=== PATIENT | female | born 1985 | race Caucasian/White ===

== ENCOUNTER 2017-07-21 11:33 | Emergency (ER) | payer MEDICAID, OTHER ==
[2017-07-21] MEDS ORDERED: Ibuprofen 600 MG Tab PO ONE (12:06)
[2017-07-21] MEDS ORDERED: Ondansetron 4 MG Tab.DIS PO ONE (12:06)
--- NOTE | 2017-07-21 12:23 | EDM.PDOC ---
ED HPI GENERAL MEDICAL PROBLEM - General Chief Complaint: Respiratory Problem Stated Complaint: SORE THROAT/BODY ACHES Time Seen by Provider: 07/21/17 12:23 Source of Information: Reports: Patient History Limitations: Reports: No Limitations - History of Present Illness INITIAL COMMENTS - FREE TEXT/NARRATIVE: 31-year-old female presents for evaluation treatment of a sore throat and bodyaches. Reports she's been having symptoms for the last 2 days. Current symptoms include body aches, cough, sore throat, chills, migraines, abdominal discomfort, nausea, vomiting diarrhea. She denies any ear pain or fevers. She also reports that she has no appetite. Reports the cough is at times dry but other times she is coughing up a thick yellow and brown sputum. Of note patient's is a resident of the [facility]. Patient reports she did get her influenza vaccine this season. Patient reports that she has AIDS. Duration: Day(s): (2) Generalized Pain Score (Numeric/FACES): 8 - Related Data Allergies Allergy/AdvReac Type Severity Reaction Status Date / Time codeine Allergy Nausea and Verified 11/05/15 11:06 CDT Vomiting cyclobenzaprine HCl Allergy Seizure Verified 11/05/15 11:06 CDT [From Flexeril] ketorolac tromethamine Allergy Shortness Verified 11/05/15 11:06 CDT [From Toradol] of Breath promethazine HCl Allergy Other Verified 11/05/15 11:06 CDT [From Phenergan] tramadol Allergy Seizure Verified 07/21/17 11:48 Home Meds: Home Meds Efavirenz/Emtricitab/Tenofovir [Atripla Tablet] 1 each PO DAILY 07/20/15 [ History] Hydrocodone/Acetaminophen [Hydrocodon-Acetaminophn 10-325] 1 tab PO Q4H PRN 05/31 [History] traMADol HCl [Tramadol HCl] 50 mg PO ASDIRECTED PRN 11/05/15 [History] Divalproex Sodium [Depakote] 250 mg PO BID 11/08/15 [History] Azithromycin [IJP: Azithromycin] 250 mg PO DAILY #6 tab 07/21/17 [Rx] Past Medical History - Past Health History Medical/Surgical History: Denies Medical/Surgical History HEENT History: Reports: Head Cardiovascular History: Reports: None Respiratory History: Reports: None Other Respiratory History: 2013 Deceme Gastrointestinal History: Reports: None Genitourinary History: Reports: None [employer] History: Reports: None Musculoskeletal History: Reports: None Neurological History: Reports: Migraines, Seizure Psychiatric History: Reports: Anxiety Endocrine/Metabolic History: Reports: None Hematologic History: Reports: None Other Hematologic History: HIV Immunologic History: Reports: AIDS Oncologic (Cancer) History: Reports: Brain Dermatologic History: Reports: None - Infectious Disease History Infectious Disease History: Reports: Hepatitis C, HIV-Human Immunodeficiency Virus - Past Surgical History Head Surgeries/Procedures: Reports: None Cardiovascular Surgical History: Reports: None Female Surgical History: Reports: None Musculoskeletal Surgical History: Reports: None Social & Family History - Family History Family Medical History: Noncontributory Immunologic: Reports: HIV - Tobacco Use Smoking Status *Q: Former Smoker Years of Tobacco use: 2 Packs/Tins Daily: 1 Used Tobacco, but Quit: No Month Tobacco Last Used: jul 2015 Second Hand Smoke Exposure: No - Caffeine Use Caffeine Use: Reports: Coffee - Alcohol Use Days Per Week of Alcohol Use: 0 (Denies) - Recreational Drug Use Recreational Drug Use: Yes Drug Use in Last 12 Months: No Recreational Drug Type: Reports: Methamphetamine Recreational Drug Use Frequency: Daily - Living Situation & Occupation Living situation: Reports: , with Family Occupation: Employed ED ROS GENERAL - Review of Systems Review Of Systems: See Below Constitutional: Reports: Chills, Decreased Appetite, Other (reports bodyaches). Denies: Fever HEENT: Reports: Throat Pain. Denies: Ear Pain Respiratory: Reports: Cough, Sputum GI/Abdominal: Reports: Abdominal Pain, Diarrhea, Nausea, Vomiting Neurological: Reports: Headache ED EXAM, GENERAL - Physical Exam Exam: See Below Exam Limited By: No Limitations General Appearance: Alert, WD/WN, No Apparent Distress Eye Exam: Bilateral Eye: Normal Inspection Ears: Normal External Exam, Normal Canal, Hearing Grossly Normal, Normal TMs Nose: Normal Inspection Throat/Mouth: Normal Inspection, Normal Lips, Normal Voice, No Airway Compromise Neck: Normal Inspection Respiratory/Chest: No Respiratory Distress, Lungs Clear, Normal Breath Sounds Cardiovascular: Normal Peripheral Pulses, Regular Rate, Rhythm, No Murmur GI/Abdominal: Normal Bowel Sounds, Soft, Non-Tender Neurological: Alert, Oriented, Normal Cognition Psychiatric: Normal Affect, Normal Mood Skin Exam: Warm, Dry, Normal Color Course - Vital Signs Last Recorded V/S: Last Vital Signs Temp 36.2 C 07/21/17 13:42 Pulse 64 07/21/17 13:42 Resp 16 07/21/17 13:42 BP 108/80 07/21/17 13:42 Pulse Ox 100 07/21/17 13:42 - Orders/Labs/Meds Meds: Medications Discontinued Medications Generic Name Dose Route Start Last Admin Trade Name Cristy PRN Reason Stop Dose Admin Acetaminophen 975 mg 07/21/17 13:25 07/21/17 13:41 Tylenol PO 07/21/17 13:26 975 mg NOW ONE Administration Ibuprofen 600 mg 07/21/17 12:06 07/21/17 12:26 Motrin PO 07/21/17 12:07 600 mg ONETIME ONE Administration Ondansetron HCl 4 mg 07/21/17 12:06 07/21/17 12:26 Zofran Odt PO 07/21/17 12:07 4 mg ONETIME ONE Administration - Radiology Interpretation Free Text/Narrative:: chest xray shows no acute intrathoracic process - Re-Assessments/Exams Free Text/Narrative Re-Assessment/Exam: 07/21/17 13:16 patient requested something for pain. I will give her ibuprofen. She has taken this medication safely in the past. influenza's returned negative Rapid strep returned negative I reviewed the chest x-ray and lab results with the patient. I will started on azithromycin. Follow-up in one week. Parents discharge instructions as documented. Departure - Departure Time of Disposition: 13:24 Disposition: Home, Self-Care 01 Condition: Fair Clinical Impression: AIDS, Upper respiratory infection - Discharge Information Prescriptions: Azithromycin [IJP: Azithromycin] 250 mg PO DAILY #6 tab Instructions: Upper Respiratory Infection, Adult, [id number] Referrals: PCP,None [Primary Care Provider] - Forms: ED Department Discharge Additional Instructions: Azithromycin 2 tabs on day 1 followed by 1 tablet on days 2 through 5. [id number] Tylenol or Motrin as needed for headaches and bodyaches. Follow-up with family medicine in 1 week for recheck. make sure you are drinking plenty of fluids. please return to the ER if your symptoms change or worsen.
[2017-07-21] MEDS ORDERED: Acetaminophen 325 MG Tab PO ONE (13:25)
[2017-07-21 16:25] VITALS: BP 108/80
--- NOTE | 2017-07-22 15:41 | CR ---
Chest: Two views of the chest were obtained. Comparison: No prior chest x-ray. Heart size and mediastinum are normal. Lungs are clear. Bony structures are unremarkable for the patient's age. Impression: 1. Nothing acute is identified on two-view chest x-ray. Diagnostic code #1
== END 2017-07-21 13:41 | disposition home or self-care (01) ==
LOC: JD.ED 11:33
DX: J06.9 Acute upper respiratory infection, unspecified (principal); B20 Human immunodeficiency virus [HIV] disease; Z87.891 Personal history of nicotine dependence; Z79.899 Other long term (current) drug therapy; Z88.5 Allergy status to narcotic agent; Z88.8 Allergy status to other drugs, medicaments and biological substances
CPT/HCPCS: 71046; 87081; 87430; 87804; 99284; A9270; 99283

== ENCOUNTER 2017-10-02 15:41 | Emergency (ER) | payer OTHER ==
[2017-10-02 15:53] VITALS: BP 106/62
[2017-10-02] MEDS ORDERED: Iopamidol 755 MG/ML 50 ML Bottle IVPUSH ONE (16:26)
[2017-10-02] MEDS ORDERED: Sodium Chloride 0.9% 10 ML Syringe FLUSH PRN (16:26)
[2017-10-02] MEDS ORDERED: Iopamidol 755 Mg/ML 100 ML Bottle IVPUSH ONE (16:26)
[2017-10-02] MEDS ORDERED: Sodium Chloride 0.9% 100 ML IV SCH (16:30)
--- NOTE | 2017-10-02 17:01 | EDM.PDOC ---
ED HPI GENERAL MEDICAL PROBLEM - General Chief Complaint: Head Injury Stated Complaint: [facility] Time Seen by Provider: 10/02/17 16:02 Source of Information: Reports: Patient, Old Records History Limitations: Reports: No Limitations - History of Present Illness INITIAL COMMENTS - FREE TEXT/NARRATIVE: 31-year-old female arrives via [facility] for evaluation and treatment of injuries sustained in a fall. The patient is a resident at the [facility]. Reportedly she was talking with the nephrology social worker. She fell down approximately 6 steps. She arrives in a c-collar and on a backboard. Patient is currently complaining of headaches and neck pain. She is unsure exactly why she fell; states she had a syncopal episode. Denies any seizures. Currently complaining of headaches, neck pain, pain to the right foot, tailbone, right hip and left lower abdomen. Patient denies any vision changes, nausea or vomiting. She denies any back pain. Reportedly per EMS and [facility] staff she fell. This was witnessed. She was unconscious for approximately 10 minutes. She had labored breathing. They attempted to give her ventilations. States that her breathing stopped. The nurse at the [facility] started compressions and gave her 1 compression she then became more alerts and since she was picked up by EMS she has been in no acute distress. Reportedly per EMS they did put her on some oxygen as her oxygen sats were in the upper 80s to low 90s. Patient states that over the last week or so she has been experiencing a dry nonproductive cough. She also states that she feels like she cannot take a deep breath in. She has been feeling lightheaded and dizzy. She did feel lightheaded prior to the fall. patient has a history of HIV. She is currently on therapy for this and sees Dr. Clark. Onset: Today Location: Reports: Head, Neck, Abdomen, Pelvis, Lower Extremity, Right. Denies : Back Head Pain Score (Numeric/FACES): 10 Neck Pain Score (Numeric/FACES): 10 - Related Data Allergies Allergy/AdvReac Type Severity Reaction Status Date / Time cephalexin Allergy Other Verified 10/02/17 15:48 codeine Allergy Nausea and Verified 10/02/17 15:48 Vomiting cyclobenzaprine HCl Allergy Seizure Verified 10/02/17 15:48 [From Flexeril] ketorolac tromethamine Allergy Shortness Verified 10/02/17 15:48 [From Toradol] of Breath oxycodone [From OxyContin] Allergy Itching Verified 10/02/17 15:48 promethazine HCl Allergy Other Verified 10/02/17 15:48 [From Phenergan] tramadol Allergy Seizure Verified 10/02/17 15:48 Home Meds: Home Meds Abacavir/Dolutegravir/Lamivudi [Triumeq Tablet] 1 tab PO DAILY 10/02/17 [History ] Aspirin [Halfprin] 81 mg PO DAILY 10/02/17 [History] Docusate Sodium [Colace] 100 mg PO BEDTIME PRN 10/02/17 [History] Fluconazole [Diflucan] 100 mg PO DAILY 10/02/17 [History] Gabapentin [Neurontin] 300 mg PO BEDTIME 10/02/17 [History] Gabapentin [Neurontin] 600 mg PO DAILY 10/02/17 [History] Gabapentin [Neurontin] 600 mg PO DAILY 10/02/17 [History] Multivits,Th w-Fe,Other Min [Therems-M] 1 tab PO DAILY 10/02/17 [History] Naproxen [Naprosyn] 500 mg PO BID 10/02/17 [History] Promethazine [Phenergan] 50 mg PO Q8H PRN 10/02/17 [History] Sennosides [Aislinn-Priyanka] 2 tab PO BEDTIME 10/02/17 [History] Sulfamethoxazole/Trimethoprim [Bactrim Ds Tablet] 0.5 tab PO DAILY 10/02/17 [ History] Topiramate 150 mg PO BEDTIME 10/02/17 [History] Topiramate 200 mg PO DAILY 10/02/17 [History] rOPINIRole [Requip] 0.5 mg PO BEDTIME 10/02/17 [History] Past Medical History - Past Health History Medical/Surgical History: Denies Medical/Surgical History HEENT History: Reports: Head Cardiovascular History: Reports: None Respiratory History: Reports: None Other Respiratory History: 2013 Gastrointestinal History: Reports: None Genitourinary History: Reports: None FLAGMAN History: Reports: None Musculoskeletal History: Reports: None Neurological History: Reports: Migraines, Seizure Psychiatric History: Reports: Anxiety Endocrine/Metabolic History: Reports: None Hematologic History: Reports: None Other Hematologic History: HIV Immunologic History: Reports: AIDS Oncologic (Cancer) History: Reports: Brain Dermatologic History: Reports: None - Infectious Disease History Infectious Disease History: Reports: Hepatitis C, HIV-Human Immunodeficiency Virus - Past Surgical History Head Surgeries/Procedures: Reports: None Cardiovascular Surgical History: Reports: None Female Surgical History: Reports: None Musculoskeletal Surgical History: Reports: None Social & Family History - Family History Family Medical History: Noncontributory Immunologic: Reports: HIV - Tobacco Use Smoking Status *Q: Unknown Ever Smoked Years of Tobacco use: 2 Packs/Tins Daily: 1 Used Tobacco, but Quit: No Month/Year Tobacco Last Used: jul 2015 Second Hand Smoke Exposure: No - Caffeine Use Caffeine Use: Reports: Coffee - Alcohol Use Days Per Week of Alcohol Use: 0 (Denies) - Recreational Drug Use Recreational Drug Use: Yes Drug Use in Last 12 Months: No Recreational Drug Type: Reports: Methamphetamine Recreational Drug Use Frequency: Daily - Living Situation & Occupation Living situation: Reports: , with Family Occupation: Employed ED ROS GENERAL - Review of Systems Review Of Systems: See Below HEENT: Denies: Dental Pain, Nosebleed, Vision Change Respiratory: Reports: Shortness of Breath Cardiovascular: Reports: Chest Pain GI/Abdominal: Reports: Abdominal Pain (LLQ). Denies: Nausea, Vomiting Musculoskeletal: Reports: Neck Pain, Joint Pain (right ankle ). Denies: Back Pain Neurological: Reports: Dizziness, Headache, Numbness (chronic from HIV), Syncope , Tingling (chronic from HIV), Weakness (chronic from HIV) ED EXAM, HEAD INJURY - Physical Exam Exam: See Below Exam Limited By: No Limitations General Appearance: Alert, WD/WN, No Apparent Distress, Thin Head: Atraumatic, Normocephalic. No: Scalp Lacerations, Scalp Swelling, Scalp Abrasions, Scalp Ecchymosis, Scalp Hematoma, Scalp Tenderness, Active Bleeding, Martins's Sign, Facial Ecchymosis, Facial Lacerations, Facial Swelling, Sinus Tenderness, Facial Tenderness, Raccoon Eyes Nexus Criteria: No: Posterior, Midline Cervical Tenderness, Evidence of Intoxication, Altered Level of Consciousness, Focal Neurological Deficit, Painful Distraction Injuries Eyes: Bilateral Eye: EOMI, Normal Inspection, PERRL Ears: Normal External Exam. No: TM Blood Nose: Normal Inspection, No Blood Throat/Mouth: Normal Inspection, Normal Lips, Normal Voice, No Airway Compromise Neck: Other (Patient is in c-collar) Respiratory: No Respiratory Distress, Lungs Clear, Normal Breath Sounds, Chest Non-Tender Cardiovascular: Normal Peripheral Pulses, Regular Rate, Rhythm, No Murmur GI/Abdominal Exam: Normal Bowel Sounds, Soft, Tender (Left lower quadrant) Back Exam: Normal Inspection. 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 NO acute changes. Reviewed by myself and Dr. Morrell. Course - Vital Signs Last Recorded V/S: Last Vital Signs Temp 36.6 C 10/02/17 15:48 Pulse 56 L 10/02/17 15:48 Resp 13 10/02/17 15:48 BP 106/62 10/02/17 15:48 Pulse Ox 100 10/02/17 15:48 - Orders/Labs/Meds Labs: Laboratory Tests 10/02/17 10/02/17 10/02/17 Range/Units 16:32 16:32 16:32 WBC 2.53 L (3.98-10.04) K/mm3 RBC 3.45 L (3.98-5.22) M/mm3 Hgb 11.7 (11.2-15.7) gm/L Hct 34.2 (34.1-44.9) % MCV 99.1 H (79.4-94.8) fl MCH 33.9 H (25.6-32.2) pg MCHC 34.2 (32.2-35.5) g/dl RDW Std Deviation 43.5 (36.4-46.3) fL Plt Count 164 L (182-369) K/mm3 MPV 8.8 L (9.4-12.3) fl Neut % (Auto) 39.5 (34.0-71.1) % Lymph % (Auto) 46.6 (19.3-51.7) % Kings % (Auto) 9.1 (4.7-12.5) % Eos % (Auto) 4.0 (0.7-5.8) Baso % (Auto) 0.4 (0.1-1.2) % Neut # (Auto) 1.00 L (1.56-6.13) K/mm3 Lymph # (Auto) 1.18 (1.18-3.74) K/mm3 Kings # (Auto) 0.23 L (0.24-0.36) K/mm3 Eos # (Auto) 0.10 (0.04-0.36) K/mm3 Baso # (Auto) 0.01 (0.01-0.08) K/mm3 Manual Slide Review Abnormal smear Sodium 140 (136-145) mEq/L Potassium 3.6 (3.5-5.1) mEq/L Chloride 107 (98-107) mEq/L Carbon Dioxide 23 (21-32) mEq/L Anion Gap 13.6 (5-15) BUN 31 H (7-18) mg/dL Creatinine 1.2 H (0.55-1.02) mg/dL Est Cr Clr Drug Dosing 68.52 mL/min Estimated GFR (MDRD) 52 (>60) mL/min BUN/Creatinine Ratio 25.8 H (14-18) Glucose 75 (74-106) mg/dL Calcium 8.8 (8.5-10.1) mg/dL Total Bilirubin 0.4 (0.2-1.0) mg/dL AST 21 (15-37) U/L ALT 13 L (14-59) U/L Alkaline Phosphatase 32 L (46-116) U/L Troponin I < 0.017 (0.00-0.056) ng/mL Total Protein 7.7 (6.4-8.2) g/dl Albumin 4.4 (3.4-5.0) g/dl Globulin 3.3 gm/dL Albumin/Globulin Ratio 1.3 (1-2) Lipase 272 (73-393) U/L Urine Color (Yellow) Urine Appearance (Clear) Urine pH (5.0-8.0) Ur Specific [place] (1.005-1.030) Urine Protein (Negative) Urine Glucose (UA) (Negative) Urine Ketones (Negative) Urine Occult Blood (Negative) Urine Nitrite (Negative) Urine Bilirubin (Negative) Urine Urobilinogen (0.2-1.0) Ur Leukocyte Esterase (Negative) Urine RBC (0-5) /hpf Urine WBC (0-5) /hpf Ur Epithelial Cells (0-5) /hpf Urine Bacteria (FEW) /hpf Urine Mucus (FEW) /hpf Urine Opiates Screen (NEGATIVE) Ur Buprenorphine Scrn (NEGATIVE) Ur Oxycodone Screen (NEGATIVE) Urine Methadone Screen (NEGATIVE) Ur Propoxyphene Screen (NEGATIVE) Ur Barbiturates Screen (NEGATIVE) Ur Tricyclics Screen (NEGATIVE) Ur Phencyclidine Scrn (NEGATIVE) Ur Amphetamine Screen (NEGATIVE) U Methamphetamines Scrn (NEGATIVE) U Benzodiazepines Scrn (NEGATIVE) U Cocaine Metab Screen (NEGATIVE) U Marijuana (THC) Screen (NEGATIVE) Ethyl Alcohol 0.00 (0.00) gm% 10/02/17 10/02/17 Range/Units 17:10 17:10 WBC (3.98-10.04) K/mm3 RBC (3.98-5.22) M/mm3 Hgb (11.2-15.7) gm/L Hct (34.1-44.9) % MCV (79.4-94.8) fl MCH (25.6-32.2) pg MCHC (32.2-35.5) g/dl RDW Std Deviation (36.4-46.3) fL Plt Count (182-369) K/mm3 MPV (9.4-12.3) fl Neut % (Auto) (34.0-71.1) % Lymph % (Auto) (19.3-51.7) % Kings % (Auto) (4.7-12.5) % Eos % (Auto) (0.7-5.8) Baso % (Auto) (0.1-1.2) % Neut # (Auto) (1.56-6.13) K/mm3 Lymph # (Auto) (1.18-3.74) K/mm3 Kings # (Auto) (0.24-0.36) K/mm3 Eos # (Auto) (0.04-0.36) K/mm3 Baso # (Auto) (0.01-0.08) K/mm3 Manual Slide Review Sodium (136-145) mEq/L Potassium (3.5-5.1) mEq/L Chloride (98-107) mEq/L Carbon Dioxide (21-32) mEq/L Anion Gap (5-15) BUN (7-18) mg/dL Creatinine (0.55-1.02) mg/dL Est Cr Clr Drug Dosing mL/min Estimated GFR (MDRD) (>60) mL/min BUN/Creatinine Ratio (14-18) Glucose (74-106) mg/dL Calcium (8.5-10.1) mg/dL Total Bilirubin (0.2-1.0) mg/dL AST (15-37) U/L ALT (14-59) U/L Alkaline Phosphatase (46-116) U/L Troponin I (0.00-0.056) ng/mL Total Protein (6.4-8.2) g/dl Albumin (3.4-5.0) g/dl Globulin gm/dL Albumin/Globulin Ratio (1-2) Lipase (73-393) U/L Urine Color Yellow (Yellow) Urine Appearance Clear (Clear) Urine pH 7.0 (5.0-8.0) Ur Specific [place] 1.015 (1.005-1.030) Urine Protein Negative (Negative) Urine Glucose (UA) Negative (Negative) Urine Ketones Negative (Negative) Urine Occult Blood Negative (Negative) Urine Nitrite Negative (Negative) Urine Bilirubin Negative (Negative) Urine Urobilinogen 0.2 (0.2-1.0) Ur Leukocyte Esterase Negative (Negative) Urine RBC Not seen (0-5) /hpf Urine WBC 0-5 (0-5) /hpf Ur Epithelial Cells 0-5 (0-5) /hpf Urine Bacteria Few (FEW) /hpf Urine Mucus Not seen (FEW) /hpf Urine Opiates Screen Negative (NEGATIVE) Ur Buprenorphine Scrn Negative (NEGATIVE) Ur Oxycodone Screen Negative (NEGATIVE) Urine Methadone Screen Negative (NEGATIVE) Ur Propoxyphene Screen Negative (NEGATIVE) Ur Barbiturates Screen Negative (NEGATIVE) Ur Tricyclics Screen Negative (NEGATIVE) Ur Phencyclidine Scrn Negative (NEGATIVE) Ur Amphetamine Screen Negative (NEGATIVE) U Methamphetamines Scrn Negative (NEGATIVE) U Benzodiazepines Scrn Negative (NEGATIVE) U Cocaine Metab Screen Negative (NEGATIVE) U Marijuana (THC) Screen Negative (NEGATIVE) Ethyl Alcohol (0.00) gm% Meds: Medications Discontinued Medications Generic Name Dose Route Start Last Admin Trade Name Freq PRN Reason Stop Dose Admin Acetaminophen 975 mg 10/02/17 17:16 10/02/17 17:24 Tylenol PO 10/02/17 17:17 975 mg NOW ONE Administration Sodium Chloride 100 mls @ 65 mls/hr 10/02/17 16:30 10/02/17 16:55 Normal Saline IV 65 mls/hr ASDIRECTED CLAIRE Administration Iopamidol 100 ml 10/02/17 16:26 10/02/17 16:55 Isovue-370 (76%) IVPUSH 10/02/17 16:27 100 ml ONETIME ONE Administration Iopamidol 25 ml 10/02/17 16:26 10/02/17 16:55 Isovue-370 (76%) IVPUSH 10/02/17 16:27 25 ml ONETIME ONE Administration Sodium Chloride 10 ml 10/02/17 16:26 10/02/17 16:55 Saline Flush FLUSH 10 ml ONETIME PRN Administration IV FLUSH - Radiology Interpretation Free Text/Narrative:: Head CT Technique: Multiple axial sections through the brain were obtained. Intravenous contrast was not utilized. Comparison: No previous intracranial imaging. Findings: Ventricles along with basal cisterns and sulci over the convexities are within normal limits for the patient's age. No abnormal parenchymal densities are seen. No evidence of intracranial hemorrhage. No midline shift or mass effect is seen. Bone window settings shows no acute calvarial abnormality. Visualized sinuses are clear. Impression: 1. Nothing acute is identified on noncontrast head CT exam. CT cervical spine Technique: Multiple axial sections were obtained from above C1 inferiorly to the bottom of T2. Reconstructed sagittal and coronal images were reviewed. Comparison: No prior cervical spine imaging. Findings: Vertebral body heights and disc spaces are maintained. No bony central or bony neural foraminal stenosis is seen. No abnormal subluxation is seen. Impression: 1. Nothing acute is seen on CT study of the cervical spine. CT chest Technique: Multiple axial sections through the chest were obtained. Intravenous contrast was utilized. Study has been performed as a pulmonary angiogram protocol. Comparison: No prior chest CT, prior chest x-ray of 07/21/17. Findings: Pulmonary arteries are well-opacified. No filling defects are seen to indicate pulmonary embolism. Mediastinum and hilar regions show no adenopathy or mass. No pericardial thickening is seen. Lungs are clear. No acute parenchymal density is seen within either lung. Bone window settings were reviewed which shows no acute abnormality. Impression: 1. No findings of pulmonary embolism. Other portions of the CT study of the chest are also unremarkable. CT abdomen and pelvis Technique: Multiple axial sections were obtained from above the dome of the diaphragm inferiorly through the pubic symphysis. Intravenous contrast was utilized. No oral contrast has been given. Delayed images were also obtained through the abdomen and pelvis. Comparison: No previous abdominal imaging. Findings: Liver shows no focal abnormality. Spleen appears within normal limits. Adrenal glands show no nodule. Pancreas is within normal limits. Kidneys show symmetric contrast enhancement without hydronephrosis or mass. Aorta shows no aneurysmal dilatation. No retroperitoneal adenopathy or mesenteric abnormalities are seen. No pelvic mass or adenopathy is seen. No free fluid or inflammatory change is seen within the abdomen or pelvis. Appendix is felt to be seen and appears normal. Bone window settings were reviewed which appears within normal limits for the patient's age. Delayed images shows contrast excretion from both kidneys. Contrast is noted within the bladder. Impression: 1. Nothing acute is seen on CT study of the abdomen and pelvis. Right ankle: Four views of the right ankle were obtained. Comparison: No previous study. Plantar spur is seen. Ankle mortise is symmetric. Small calcification is noted off the anterior tibia which is seen on the lateral view which is well- corticated and is old. No acute fracture, dislocation or other bony abnormality is seen. Impression: 1. Incidental findings. Nothing acute is seen on right ankle exam. Right foot: Four portable views of the right foot were obtained. Comparison: No prior foot exam. Joint spaces are maintained. Plantar spur again noted. No fracture, dislocation or other bony abnormality is seen. Impression: 1. Incidental plantar spur. 2. Right foot exam is otherwise unremarkable. - Re-Assessments/Exams Free Text/Narrative Re-Assessment/Exam: 10/02/17 19:01 I reviewed the labs and imaging with the patient. A PE study was initially ordered due to the uncertainty of the etiology of her fall. I feel her white blood cell count is slightly decreased today due to her HIV. Other than an abrasion to the right lateral ankle no other injuries have been found. Unclear exactly the reasoning for her fall whether she had a vasovagal episode or if this is from her HIV. She has been resting comfortably in the ER and has had no complications. She has eaten. I feel she is safe to go back to [facility]. We will discharge her to the [facility]. Discharge instructions his document. Departure - Departure Time of Disposition: 19:03 Disposition: Home, Self-Care 01 Condition: Fair Clinical Impression: Fall, Headache - Discharge Information Instructions: General Headache Without Cause Referrals: Nyasia Landin PA-C [Primary Care Provider] - Forms: ED Department Discharge Additional Instructions: [id number] Tylenol or Motrin as needed for headaches and pain relief. Also recommend using ice or heat for additional pain relief. Follow up with your primary care provider if your symptoms have not improved much within 1-2 weeks. make sure you are drinking plenty of fluids. Please return to the ER if your symptoms change or worsen.
[2017-10-02] MEDS ORDERED: Acetaminophen 325 MG Tab PO ONE (17:16)
--- NOTE | 2017-10-02 17:44 | CT ---
CT chest Technique: Multiple axial sections through the chest were obtained. Intravenous contrast was utilized. Study has been performed as a pulmonary angiogram protocol. Comparison: No prior chest CT, prior chest x-ray of 07/21/17. Findings: Pulmonary arteries are well-opacified. No filling defects are seen to indicate pulmonary embolism. Mediastinum and hilar regions show no adenopathy or mass. No pericardial thickening is seen. Lungs are clear. No acute parenchymal density is seen within either lung. Bone window settings were reviewed which shows no acute abnormality. Impression: 1. No findings of pulmonary embolism. Other portions of the CT study of the chest are also unremarkable. Diagnostic code #1
--- NOTE | 2017-10-02 17:46 | CT ---
CT cervical spine Technique: Multiple axial sections were obtained from above C1 inferiorly to the bottom of T2. Reconstructed sagittal and coronal images were reviewed. Comparison: No prior cervical spine imaging. Findings: Vertebral body heights and disc spaces are maintained. No bony central or bony neural foraminal stenosis is seen. No abnormal subluxation is seen. Impression: 1. Nothing acute is seen on CT study of the cervical spine. Diagnostic code #1
--- NOTE | 2017-10-02 17:46 | CT ---
Head CT Technique: Multiple axial sections through the brain were obtained. Intravenous contrast was not utilized. Comparison: No previous intracranial imaging. Findings: Ventricles along with basal cisterns and sulci over the convexities are within normal limits for the patient's age. No abnormal parenchymal densities are seen. No evidence of intracranial hemorrhage. No midline shift or mass effect is seen. Bone window settings shows no acute calvarial abnormality. Visualized sinuses are clear. Impression: 1. Nothing acute is identified on noncontrast head CT exam. Diagnostic code #1
--- NOTE | 2017-10-02 17:48 | CR ---
Right ankle: Four views of the right ankle were obtained. Comparison: No previous study. Plantar spur is seen. Ankle mortise is symmetric. Small calcification is noted off the anterior tibia which is seen on the lateral view which is well-corticated and is old. No acute fracture, dislocation or other bony abnormality is seen. Impression: 1. Incidental findings. Nothing acute is seen on right ankle exam. Diagnostic code #2
--- NOTE | 2017-10-02 17:48 | CR ---
Right foot: Four portable views of the right foot were obtained. Comparison: No prior foot exam. Joint spaces are maintained. Plantar spur again noted. No fracture, dislocation or other bony abnormality is seen. Impression: 1. Incidental plantar spur. 2. Right foot exam is otherwise unremarkable. Diagnostic code #2
--- NOTE | 2017-10-02 17:48 | CT ---
CT abdomen and pelvis Technique: Multiple axial sections were obtained from above the dome of the diaphragm inferiorly through the pubic symphysis. Intravenous contrast was utilized. No oral contrast has been given. Delayed images were also obtained through the abdomen and pelvis. Comparison: No previous abdominal imaging. Findings: Liver shows no focal abnormality. Spleen appears within normal limits. Adrenal glands show no nodule. Pancreas is within normal limits. Kidneys show symmetric contrast enhancement without hydronephrosis or mass. Aorta shows no aneurysmal dilatation. No retroperitoneal adenopathy or mesenteric abnormalities are seen. No pelvic mass or adenopathy is seen. No free fluid or inflammatory change is seen within the abdomen or pelvis. Appendix is felt to be seen and appears normal. Bone window settings were reviewed which appears within normal limits for the patient's age. Delayed images shows contrast excretion from both kidneys. Contrast is noted within the bladder. Impression: 1. Nothing acute is seen on CT study of the abdomen and pelvis. Diagnostic code #1
== END 2017-10-02 19:10 | disposition home or self-care (01) ==
LOC: JD.ED 15:41
DX: S90.511A Abrasion, right ankle, initial encounter (principal); R51 Headache; B20 Human immunodeficiency virus [HIV] disease; Z88.1 Allergy status to other antibiotic agents; Z88.6 Allergy status to analgesic agent; Z88.5 Allergy status to narcotic agent; Z88.8 Allergy status to other drugs, medicaments and biological substances; Z79.899 Other long term (current) drug therapy; W10.9XXA Fall (on) (from) unspecified stairs and steps, initial encounter
CPT/HCPCS: 36415; 70450; 71275; 72125; 73610; 73630; 74177; 80053; 80306; 81001; 83690; 84484; 85025; 93005; 99285; A9270; G0480; J7030; J7050; Q9967

== ENCOUNTER 2019-05-30 14:21 | Emergency (ER) | payer OTHER ==
[2019-05-30] MEDS ORDERED: Clindamycin Phosphate 300 MG/2 ML SDV IM ONE (14:35)
[2019-05-30 14:38] VITALS: BP 115/87; PULSE 73
--- NOTE | 2019-05-30 14:40 | EDM.PDOC ---
ED HPI GENERAL MEDICAL PROBLEM - General Chief Complaint: Eye Problems Stated Complaint: SKIN COMPLAINT/INSECT BITE Time Seen by Provider: 05/30/19 14:26 Source of Information: Reports: Patient History Limitations: Reports: No Limitations - History of Present Illness INITIAL COMMENTS - FREE TEXT/NARRATIVE: Patient is an unfortunate 33-year-old female who presents emergency Department today with complaint of redness to her left upper eyelid and redness to her left cheek. Patient reports symptoms started 3 days ago and progressively worsened since. No visual disturbance no eye pain. Patient has a history of hepatitis C and HIV. Patient reports her last CD4 count was 100. She has not been taking any of her medication at the longterm because she has not wanted to. No fever, no nausea, no vomiting, no cough, no congestion, no hematemesis, no chest pain, no shortness of breath Left Eye Pain Score (Numeric/FACES): 5 - Related Data Allergies Allergy/AdvReac Type Severity Reaction Status Date / Time cephalexin Allergy Other Verified 10/02/17 15:48 codeine Allergy Nausea and Verified 10/02/17 15:48 Vomiting cyclobenzaprine HCl Allergy Seizure Verified 10/02/17 15:48 [From Flexeril] ketorolac tromethamine Allergy Shortness Verified 10/02/17 15:48 [From Toradol] of Breath oxycodone [From OxyContin] Allergy Itching Verified 10/02/17 15:48 promethazine HCl Allergy Other Verified 10/02/17 15:48 [From Phenergan] tramadol Allergy Seizure Verified 10/02/17 15:48 Home Meds: Home Meds Clindamycin HCl 300 mg PO QID #56 capsule 05/30/19 [Rx] Past Medical History - Past Health History Medical/Surgical History: Denies Medical/Surgical History HEENT History: Reports: Head Cardiovascular History: Reports: None Respiratory History: Reports: None Other Respiratory History: 2013 Gastrointestinal History: Reports: None Genitourinary History: Reports: None MEDICAL CUSTOMER SERVICE REPRESENTATIVE History: Reports: None Musculoskeletal History: Reports: None Neurological History: Reports: Migraines, Seizure Psychiatric History: Reports: Anxiety Endocrine/Metabolic History: Reports: None Hematologic History: Reports: None Other Hematologic History: HIV Immunologic History: Reports: AIDS Oncologic (Cancer) History: Reports: Brain Dermatologic History: Reports: None - Infectious Disease History Infectious Disease History: Reports: Hepatitis C, HIV-Human Immunodeficiency Virus - Past Surgical History Head Surgeries/Procedures: Reports: None Cardiovascular Surgical History: Reports: None Female Surgical History: Reports: None Musculoskeletal Surgical History: Reports: None Social & Family History - Family History Family Medical History: Noncontributory Immunologic: Reports: HIV - Caffeine Use Caffeine Use: Reports: Coffee - Living Situation & Occupation Living situation: Reports: , with Family Occupation: Employed ED ROS GENERAL - Review of Systems Review Of Systems: See Below Constitutional: Reports: No Symptoms HEENT: Reports: Other (Erythema the left upper eyelid and left cheek). Denies: Eye Discharge, Eye Pain Respiratory: Reports: No Symptoms Cardiovascular: Reports: No Symptoms Endocrine: Reports: No Symptoms GI/Abdominal: Reports: No Symptoms : Reports: No Symptoms Musculoskeletal: Reports: No Symptoms Skin: Reports: No Symptoms Neurological: Reports: No Symptoms Psychiatric: Reports: No Symptoms Hematologic/Lymphatic: Reports: No Symptoms Immunologic: Reports: No Symptoms ED EXAM GENERAL W FULL EYE - Physical Exam Exam: See Below Exam Limited By: No Limitations General Appearance: Alert, WD/WN, Mild Distress Eyelids: Left: Erythema (Mild erythema left upper lip no hordeolum) Conjunctiva & Sclera: Bilateral: Normal Appearance Extraocular Movements: Bilateral: Intact Pupils: Normal Accommodation Ears: Normal External Exam, Normal Canal, Hearing Grossly Normal, Normal TMs Nose: Normal Inspection, Normal Mucosa, No Blood Throat/Mouth: Normal Inspection, Normal Lips, Normal Teeth, Normal Gums, Normal Oropharynx, Normal Voice, No Airway Compromise Head: Other (Mild erythema to left cheek I dramatic arch, does not extend no evidence of shingles at this time) Respiratory/Chest: No Respiratory Distress, Lungs Clear, Normal Breath Sounds, No Accessory Muscle Use, Chest Non-Tender Cardiovascular: Normal Peripheral Pulses, Regular Rate, Rhythm, No Edema, No Gallop, No JVD, No Murmur, No Rub GI/Abdominal: Normal Bowel Sounds, Soft, Non-Tender, No Organomegaly, No Distention, No Abnormal Bruit, No Mass Extremities: Normal Inspection, Normal Range of Motion, Non-Tender, Normal Capillary Refill, No Pedal Edema Neurological: Alert, Oriented Skin Exam: Warm, Dry, Intact, Normal Color, No Rash Course - Vital Signs Last Recorded V/S: Last Vital Signs Temp 97.1 F 05/30/19 14:37 Pulse 73 05/30/19 14:37 Resp 20 05/30/19 14:37 BP 115/87 05/30/19 14:37 Pulse Ox 100 05/30/19 14:37 - Orders/Labs/Meds Meds: Medications Discontinued Medications Generic Name Dose Route Start Last Admin Trade Name Cristy PRN Reason Stop Dose Admin Clindamycin Phosphate 600 mg 05/30/19 14:35 Cleocin IM 05/30/19 14:36 ONETIME ONE - Re-Assessments/Exams Free Text/Narrative Re-Assessment/Exam: 05/30/19 14:41 Patient has mild blepharitis with a mild left cheek cellulitis, will cover with clindamycin, patient has history of HIV no evidence of acute sepsis at this time no evidence of shingles will treat for mild cellulitis and blepharitis and have patient return for any worsening condition area patient is not taking any of her antiretrovirals at this time we will recommend follow-up with her infectious disease specialist Departure - Departure Time of Disposition: 14:42 Disposition: Home, Self-Care 01 Clinical Impression: Blepharitis of eyelid of left eye Qualifiers: Blepharitis type: unspecified type Eyelid: upper Qualified Code(s): H01.004 - Unspecified blepharitis left upper eyelid Cellulitis Qualifiers: Site of cellulitis: face Qualified Code(s): L03.211 - Cellulitis of face - Discharge Information Prescriptions: Clindamycin HCl 300 mg PO QID #56 capsule Instructions: Blepharitis Referrals: Nyasia Landin PA-C [Primary Care Provider] - Forms: ED Department Discharge Additional Instructions: Home, rest, keep area clean and dry, warm compresses 20 minutes at a time 3-4 times per day, you need follow-up with your infectious disease physician next week, return as needed for any worsening condition
[2019-05-30] MEDS ORDERED: Clindamycin Phosphate 600 MG/4 ML SDV IM ONE (15:00)
== END 2019-05-30 15:08 | disposition home or self-care (01) ==
LOC: SUPCPDRO 14:21 → JD.ED 14:21
DX: H01.004 Unspecified blepharitis left upper eyelid (principal); L03.211 Cellulitis of face; Z88.1 Allergy status to other antibiotic agents; Z88.5 Allergy status to narcotic agent; Z88.8 Allergy status to other drugs, medicaments and biological substances
CPT/HCPCS: 96372; 99283; J3490

== ENCOUNTER 2022-10-20 17:09 | Emergency (ER) | payer BC, MEDICAID, OTHER ==
[2022-10-20 17:22] VITALS: BP 120/84; PULSE 74
[2022-10-20] MEDS ORDERED: Sodium Chloride 0.9% 10 ML Syringe FLUSH PRN (17:23)
[2022-10-20 18:23] LABS: ESTIMATED GFR 67 mL/min (>60)
== END 2022-10-20 19:35 | disposition home or self-care (01) ==
LOC: JD.ED 17:09
DX: R07.89 Other chest pain (principal); Z88.1 Allergy status to other antibiotic agents; Z88.5 Allergy status to narcotic agent
CPT/HCPCS: 36415; 71045; 80053; 83735; 83880; 84484; 85025; 85379; 85610; 85730; 93005; 99285; J3490; 93010; 99283